=== PATIENT | female | born 1940 | race Caucasian/White ===

== ENCOUNTER 2017-09-17 10:47 | Emergency (ER) | payer OTHER ==
--- NOTE | 2017-09-17 12:24 | ER ---
Nurse's Notes [facility] Name: Ruslan Sanz Age: 76 yrs Sex: Female : 1940 Arrival Date: 09/17/2017 Time: 10:50 Bed 2 Private MD: Armida Horn F Diagnosis: Rash and other nonspecific skin eruption Presentation: 09/17 10:56 Presenting complaint: Patient states: Painful, itchy rash to left inner thigh and left hb inner knee x 5 days. Transition of care: patient was not received from another setting of care. Onset of symptoms was September 13, 2017. Care prior to arrival: None. 10:56 Method Of Arrival: Ambulatory hb 10:56 Acuity: MICHAEL 4 hb Historical: - Allergies: 10:58 PENICILLINS; hb 10:58 Morphine; hb - Immunization history:: Adult Immunizations up to date. - Social history:: Smoking status: Patient/guardian denies using tobacco. Screenin:03 Abuse screen: Denies threats or abuse. Denies injuries from another. Nutritional ph screening: No deficits noted. Tuberculosis screening: No symptoms or risk factors identified. Fall Risk None identified. Assessment: 12:01 General: Appears in no apparent distress. comfortable, well groomed, Behavior is calm, ph cooperative, appropriate for age, Denies fever, feeling ill. Pain: Complains of pain in left inner thigh. Neuro: Level of Consciousness is awake, alert, obeys commands, Oriented to person, place, time, situation. Respiratory: Airway is patent Respiratory effort is even, unlabored, Denies shortness of breath. GI: Patient currently denies diarrhea, nausea, vomiting. Derm: Skin is healthy with good turgor, Skin is pink, warm \\T\\ dry. Rash noted that is itchy, red, on medial aspect of right thigh. Musculoskeletal: Circulation, motion, and sensation intact. Range of motion: intact in all extremities. 12:32 Reassessment: Patient appears in no apparent distress at this time. Waiting "shot time" ph before discharge. Vital Signs: 10:57 BP 148 / 67; Pulse 63; Resp 18; Temp 98.7; Pulse Ox 99% on R/A; Weight 71.67 kg; Height hb 5 ft. 3 in. (160.02 cm); Pain 5/10; 10:57 Body Mass Index 27.99 (71.67 kg, 160.02 cm) ED Course: 10:50 Patient arrived in ED. rg4 10:50 Armida Horn MD is Private Physician. rg4 10:57 Triage completed. hb 10:57 Arm band placed on right wrist. hb 11:44 Conrado Navarro NP is PHCP. pm1 11:44 Joseph Reeves MD is Attending Physician. pm1 12:01 Swetha Chisholm RN is Primary Nurse. ph 12:03 Patient has correct armband on for positive identification. Bed in low position. Call ph light in reach. Side rails up X 1. 12:03 No provider procedures requiring assistance completed. Patient did not have IV access ph during this emergency room visit. 12:24 Armida Horn MD is Referral Physician. pm1 Administered Medications: 12:28 Drug: Tetanus-Diphtheria Toxoid Adult 0.5 ml {Tail Board Man: [employer]. Exp: ph 01/21/2020. Lot #: [id number]. } Route: IM; Site: right gluteus; Outcome: 12:24 Discharge ordered by MD. pm1 13:16 Discharged to home ambulatory, with family. ss 13:16 Condition: good 13:16 Discharge instructions given to patient, family, Instructed on discharge instructions, follow up and referral plans. medication usage, Demonstrated understanding of instructions, follow-up care, medications, Prescriptions given X 1. 13:16 Patient left the ED. ss Signatures: Bailey Acuna RN RN Swetha Chisholm RN RN Conrado Navarro NP BOTTLE HOUSE PUMPER pm1 Maddie Cardona RN RN Opal Emery rg4
--- NOTE | 2017-09-17 12:25 | EDPHYS ---
Physician Documentation [facility] Name: Ruslan Sanz Age: 76 yrs Sex: Female : 1940 Arrival Date: 09/17/2017 Time: 10:50 Bed 2 Private MD: Armida Horn F ED Physician Joseph Reeves HPI: 09/17 12:00 This 76 yrs old Female presents to ER via Ambulatory with complaints of Rash. pm1 12:00 The patient's rash thought to be caused by an unknown cause. The rash is located on the pm1 medial aspect of left thigh. The rash can be described as macular, pustular. Onset: The symptoms/episode began/occurred 2 day(s) ago. Associated signs and symptoms: Pertinent negatives: fever. Severity of symptoms: in the emergency department the symptoms are worse. The patient has not experienced similar symptoms in the past. The patient has not recently seen a physician. Historical: - Allergies: 10:58 PENICILLINS; hb 10:58 Morphine; hb - Immunization history:: Adult Immunizations up to date. - Social history:: Smoking status: Patient/guardian denies using tobacco. ROS: 12:00 Constitutional: Negative for fever, chills, and weight loss, Eyes: Negative for injury, pm1 pain, redness, and discharge, ENT: Negative for injury, pain, and discharge, Neck: Negative for injury, pain, and swelling, Cardiovascular: Negative for chest pain, palpitations, and edema, Respiratory: Negative for shortness of breath, cough, wheezing, and pleuritic chest pain, Abdomen/GI: Negative for abdominal pain, nausea, vomiting, diarrhea, and constipation, Back: Negative for injury and pain, : Negative for injury, bleeding, discharge, and swelling, MS/Extremity: Negative for injury and deformity. 12:00 Neuro: Negative for headache, weakness, numbness, tingling, and seizure. 12:00 Skin: Positive for rash, of the medial aspect of left thigh. Exam: 12:00 Constitutional: This is a well developed, well nourished patient who is awake, alert, pm1 and in no acute distress. Head/Face: Normocephalic, atraumatic. Chest/axilla: Normal chest wall appearance and motion. Nontender with no deformity. No lesions are appreciated. Cardiovascular: Regular rate and rhythm with a normal S1 and S2. No gallops, murmurs, or rubs. Normal PMI, no JVD. No pulse deficits. Respiratory: Lungs have equal breath sounds bilaterally, clear to auscultation and percussion. No rales, rhonchi or wheezes noted. No increased work of breathing, no retractions or nasal flaring. Abdomen/GI: Soft, non-tender, with normal bowel sounds. No distension or tympany. No guarding or rebound. No evidence of tenderness throughout. Back: No spinal tenderness. No costovertebral tenderness. Full range of motion. 12:00 Skin: Appearance: normal except for affected area, abscess, not appreciated, cellulitis, is not appreciated, lesion(s), noted, and can be described as large macules with centralized small pustules. Vital Signs: 10:57 BP 148 / 67; Pulse 63; Resp 18; Temp 98.7; Pulse Ox 99% on R/A; Weight 71.67 kg; Height hb 5 ft. 3 in. (160.02 cm); Pain 5/10; 10:57 Body Mass Index 27.99 (71.67 kg, 160.02 cm) hb MDM: 11:44 Patient medically screened. pm1 12:22 Data reviewed: vital signs. Data interpreted: Pulse oximetry: on room air is 99 %. pm1 Interpretation: normal. Counseling: I had a detailed discussion with the patient and/or guardian regarding: the historical points, exam findings, and any diagnostic results supporting the discharge/admit diagnosis, the need for outpatient follow up, to return to the emergency department if symptoms worsen or persist or if there are any questions or concerns that arise at home. Administered Medications: 12:28 Drug: Tetanus-Diphtheria Toxoid Adult 0.5 ml {Sugar Presser: [employer]. Exp: ph 01/21/2020. Lot #: [id number]. } Route: IM; Site: right gluteus; Disposition: 13:29 Co-signature as Attending Physician, Joseph Reeves MD I agree with the assessment and kdr plan of care. Disposition: 09/17/17 12:24 Discharged to Home. Impression: Rash and other nonspecific skin eruption. - Condition is Stable. - Discharge Instructions: Rash. - Prescriptions for Bactrim DS 800- 160 mg Oral Tablet - take 1 tablet by ORAL route every 12 hours for 10 days; 20 tablet. - Medication Reconciliation Form, Thank You Letter, Antibiotic Education form. - Follow up: Emergency Department; When: As needed; Reason: Worsening of condition. Follow up: Armida Horn MD; When: 2 - 3 days; Reason: Recheck today's complaints, Continuance of care, Re-evaluation by your physician. - Problem is new. - Symptoms have improved. Signatures: Joseph Reeves MD MD [facility] Bailey Acuna RN RN ss Swetha Chisholm RN RN Conrado Navarro, [employer]PARTMENT OPERATIONS MANAGER pm1 Maddie Cardona RN RN hb
[2017-09-17] MEDS ORDERED: TETANUS & DIPHTHERIA TOX,ADULT 0.5 ML VIAL ONE (12:45)
[2017-09-17 13:25] VITALS: BP 148/67; TEMP 98.7; O2SAT 99
== END 2017-09-17 13:16 | disposition home or self-care (01) ==
LOC: ER 10:47
DX: R21 Rash and other nonspecific skin eruption (principal); Z23 Encounter for immunization; Z88.0 Allergy status to penicillin; Z88.5 Allergy status to narcotic agent
CPT/HCPCS: 90714; 99283

== ENCOUNTER 2020-03-10 16:09 | Emergency (ER) | payer OTHER ==
--- OUTSIDE RECORDS SUMMARY | 2020-03-10 16:11 | XMS REPORT | Continuity of Care Document ---
:1940 Author Organization [facility] t Address [address] [place] [address] Care Team Providers Name Role Phone Unavailable Unavailable Unavailable Problems This patient has no known problems. Allergies, Adverse Reactions, Alerts This patient has no known allergies or adverse reactions. Medications This patient has no known medications. Procedures This patient has no known procedures. Results This patient has no known results.
[2020-03-10 17:24] LABS: Absolute Lymphocytes (CBC) 0.7 K/uL (0.7-4.9); Basophils % 0.4 % (0-1.3); MPV 8.6 fL (7.6-11.3); RBC Red Blood Cell Count 3.99 M/uL (3.86-4.86)
--- NOTE | 2020-03-10 17:33 | RAD REPORT ---
EXAM DESCRIPTION: CT - Stone Protocol - 03/10/2020 5:25 pm CLINICAL HISTORY: right lower abdomen and right lower back pain COMPARISON: No comparisons TECHNIQUE: Axial 3 mm thick images were obtained without oral or IV contrast. The [id number] span s the entirety of the system including uppermost abdomen and lung bases. All CT scans are performed using dose optimization technique as appropriate and may include automated exposure control or mA/KV adjustment according to patient size. FINDINGS: Mild right-sided hydronephrosis is present secondary to a 3 mm UVJ calculus. Right kidney is edematous. Stranding is seen in the perinephric fat. Additional mineralization is present in the l ower pole calyx on the right. No left-sided hydronephrosis or obstructing calculus. No suspicious maurice al masses. Isodense masses and pyelonephritis are not excluded on a stone protocol CT scan. No signif icant adrenal finding. Air is present in the urinary bladder presumed to be from catheterization proc edure. Imaged portions of the liver, spleen and pancreas show no suspicious findings on non-contrast imaging . Cholecystectomy clips are present. No biliary tree dilatation. No suspicious bowel findings. No hernia, mass or bulky lymphadenopathy noted. No free air, free fluid or inflammatory stranding. No significant bony abnormality. IMPRESSION: Mild right-sided hydronephrosis secondary to an obstructing 3 mm UVJ calculus. Air in the urinary bladder is presumed to be from a catheterization procedure. This needs clinical co rrelation. Isodense masses and pyelonephritis are not excluded on stone protocol technique.
[2020-03-10 17:42] LABS: ALT/SGPT 13 U/L (12-78); AST/SGOT 20 U/L (15-37); Albumin 3.5 g/dL (3.4-5.0); Alkaline Phosphatase 152 U/L (45-117); BUN Blood Urea Nitrogen 17 mg/dL (7-18); Bicarbonate 26 mmol/L (21-32); Bilirubin Direct < 0.1 mg/dL (0-0.2); Bilirubin Total 0.3 mg/dL (0.2-1.0); Glucose Level 117 mg/dL (74-106); Lipase 82 U/L (73-393); Potassium 4.1 mmol/L (3.5-5.1); Protein, Total 7.7 g/dL (6.4-8.2); Sodium Level 137 mmol/L (136-145)
[2020-03-10] MEDS ORDERED: KETOROLAC 30 MG/ML INJ ONE (17:59)
[2020-03-10] MEDS ORDERED: FENTANYL CITR 100 MCG/2 ML ONE (17:59)
[2020-03-10] MEDS ORDERED: ONDANSETRON 4 MG/2 ML VIAL ONE (17:59)
[2020-03-10 18:09] LABS: Urine Bacteria LOADED /HPF (<20); Urine RBC NONE SEEN /HPF (NONE SEEN)
[2020-03-10 18:10] LABS: Urine Culture Reflex Order REFLEXED
[2020-03-10] MEDS ORDERED: TAMSULOSIN 0.4 MG SR CAP ONE (18:22)
[2020-03-10] MEDS ORDERED: NA CHLORIDE 0.9% 250 ML ONE (18:22)
[2020-03-10] MEDS ORDERED: CEFTRIAXONE/SWI 1gm 1 GM/10 ML SYR ONE (18:22)
--- NOTE | 2020-03-10 18:36 | EDPHYS ---
Physician Documentation [facility] Name: Ruslan Sanz Age: 79 yrs Sex: Female : 1940 Arrival Date: 03/10/2020 Time: 16:20 Bed 16 Private MD: ED Physician Manan Coronado HPI: 03/10 17:10 This 79 yrs old Female presents to ER via Ambulatory with complaints of Back cp Pain, Abdominal Pain. 17:10 The patient complains of pain in the right lower quadrant of abdomen and right low cp back. The pain radiates to the right mid back. Onset: The symptoms/episode began/occurred suddenly, 5 hour(s) ago. Associated signs and symptoms: Pertinent positives: urinary frequency, nausea, vomiting, Pertinent negatives: diarrhea, fever, pain radiating to the lower extremities. Severity of pain: in the emergency department the pain is unchanged despite home interventions. Historical: - Allergies: 16:40 PENICILLINS; aj1 16:40 Morphine; aj1 - Home Meds: 16:40 gabapentin oral oral [Active]; Carbamazepine Oral [Active]; duloxetine 20 mg oral cpDR aj1 [Active]; Meclizine Oral [Active]; Topamax Oral [Active]; lisinopril-hydrochlorothiazide oral oral [Active]; - PMHx: 16:40 Hypertension; Migraines; trigeminal neuralgia; Sleep Apnea; aj1 - Immunization history:: Flu vaccine is up to date. - Social history:: Smoking status: Patient/guardian denies using tobacco. ROS: 17:15 Constitutional: Negative for body aches, chills, fever, poor PO intake. cp 17:15 Eyes: Negative for injury, pain, redness, and discharge. cp 17:15 ENT: Negative for ear pain, sore throat, difficulty swallowing, difficulty handling secretions. 17:15 Cardiovascular: Negative for chest pain. 17:15 Respiratory: Negative for cough, shortness of breath, wheezing. 17:15 Abdomen/GI: Positive for abdominal pain, nausea, vomiting, of the right lower quadrant, Negative for diarrhea, constipation, black/tarry stool, rectal bleeding. 17:15 Back: Positive for flank pain, on the right, radiated pain, Negative for injury or acute deformity. 17:15 : Positive for urinary frequency, Negative for burning with urination. 17:15 Skin: Negative for rash. 17:15 Neuro: Negative for altered mental status, headache, weakness. 17:15 All other systems are negative. Exam: 17:20 Constitutional: The patient appears in no acute distress, alert, awake, cp non-diaphoretic, non-toxic, well developed, well nourished. 17:20 Head/Face: Normocephalic, atraumatic. cp 17:20 Eyes: Periorbital structures: appear normal, Conjunctiva: normal, no exudate, no injection, Sclera: no appreciated abnormality, Lids and lashes: appear normal, bilaterally. 17:20 ENT: External ear(s): are unremarkable, Nose: is normal, Mouth: Lips: moist, Oral mucosa: moist, Posterior pharynx: Airway: no evidence of obstruction, patent. 17:20 Chest/axilla: Inspection: normal, Palpation: is normal, no crepitus, no tenderness. 17:20 Cardiovascular: Rate: normal, Rhythm: regular, Edema: is not appreciated, JVD: is not appreciated. 17:20 Respiratory: the patient does not display signs of respiratory distress, Respirations: normal, no use of accessory muscles, no retractions, labored breathing, is not present, Breath sounds: are clear throughout, no decreased breath sounds, no stridor, no wheezing. 17:20 Abdomen/GI: Inspection: abdomen appears normal, Bowel sounds: active, all quadrants, Palpation: soft, in all quadrants, moderate abdominal tenderness, in the posterior aspect of right lateral abdomen, anterior aspect of right lateral abdomen and right lower quadrant, rebound tenderness, is not appreciated, voluntary guarding, is not appreciated, involuntary guarding, is not appreciated. 17:20 Back: pain, that is moderate, of the right mid back and right low back, ROM is painful, with all movement. 17:20 Skin: no rash present. 17:20 Neuro: Orientation: to person, place \T\ time. Mentation: is normal, Motor: moves all fours, strength is normal. Vital Signs: 16:40 BP 194 / 79; Pulse 63; Resp 18; Temp 98.5; Pulse Ox 98% on R/A; Weight 73.48 kg (R); aj1 Height 5 ft. 3 in. (160.02 cm) (R); Pain 10/10; 17:10 BP 165 / 67; Pulse 64; Resp 15 S; Pulse Ox 99% on R/A; ca1 17:55 BP 155 / 74; Pulse 66; Resp 18 S; Pulse Ox 95% on R/A; Pain 4/10; ca1 16:40 Body Mass Index 28.70 (73.48 kg, 160.02 cm) aj1 MDM: 17:01 Patient medically screened. cp 17:30 Differential diagnosis: nephrolithiasis, pyelonephritis, UTI, diverticulitis, cp pancreatitis, appendicitis, colitis, bowel obstruction. 18:35 Data reviewed: vital signs, nurses notes, lab test result(s), radiologic studies, CT cp scan, I have discussed the patient's presentation/case with the attending Emergency Department Physician; and as a result, I will discharge patient. 18:35 Counseling: I had a detailed discussion with the patient and/or guardian regarding: the cp historical points, exam findings, and any diagnostic results supporting the discharge/admit diagnosis, lab results, radiology results, the need for outpatient follow up, a urologist, to return to the emergency department if symptoms worsen or persist or if there are any questions or concerns that arise at home. Response to treatment: the patient's symptoms have markedly improved after treatment. ED course: VSS. Patient appears non-toxic. Nausea and pain markedly improved, vomiting resolved. Will discharge to home for continued monitoring. 03/10 17:02 Order name: Basic Metabolic Panel; Complete Time: 18:17 03/10 18:18 Interpretation: Normal except: GLUC 117; GFR 54. 03/10 17:02 Order name: CBC with Diff; Complete Time: 17:39 03/10 17:39 Interpretation: Normal except: FAROOQ% 78.5; LYM% 13.0. 03/10 17:02 Order name: Hepatic Function; Complete Time: 18:17 03/10 17:02 Order name: Lipase; Complete Time: 18:17 03/10 17:02 Order name: Urine Microscopic Only; Complete Time: 18:17 03/10 18:17 Interpretation: Reviewed. 03/10 18:08 Order name: Urine Dipstick--Ancillary (enter results) eb 03/10 17:05 Order name: CT Stone Protocol; Complete Time: 17:39 03/10 18:10 Order name: Urine Culture EDID 03/10 17:02 Order name: IV Saline Lock; Complete Time: 17:21 cp 03/10 17:02 Order name: Labs collected and sent; Complete Time: 17:21 cp 03/10 17:02 Order name: Bladder Scanner; Complete Time: 17:09 cp 03/10 17:02 Order name: Urine Dipstick-Ancillary (obtain specimen); Complete Time: 17:54 cp 03/10 17:42 Order name: PO challenge; Complete Time: 18:14 cp Administered Medications: 17:25 Drug: Zofran (Ondansetron) 4 mg Route: IVP; Site: right wrist; ca1 18:53 Follow up: Response: No adverse reaction; Nausea is decreased ca1 17:27 Drug: TORadol - Ketorolac 15 mg Route: IVP; Site: right wrist; ca1 18:53 Follow up: Response: No adverse reaction; Pain is decreased; RASS: Alert and Calm (0) ca1 17:30 Drug: fentaNYL (PF) 25 mcg {Note: rass 0.} Route: IVP; Site: right wrist; ca1 18:53 Follow up: Response: No adverse reaction; Pain is decreased; RASS: Alert and Calm (0) ca1 18:15 Drug: Flomax 0.4 mg Route: PO; ca1 18:54 Follow up: Response: No adverse reaction ca1 18:15 Drug: Rocephin 1 grams Route: IV; Rate: calculated rate; Site: right wrist; ca1 18:54 Follow up: Response: No adverse reaction; IV Status: Completed infusion ca1 18:15 Drug: NS 0.9% 250 ml Route: IV; Rate: bolus; Site: right wrist; ca1 18:54 Follow up: Response: No adverse reaction; IV Status: Completed infusion; IV Intake: ca1 250ml 18:40 Drug: Cipro 500 mg Route: PO; ca1 18:53 Follow up: Response: No adverse reaction ca1 Disposition: 03/11 16:49 Co-signature as Attending Physician, Manan Coronado MD I agree with the assessment and anabelle plan of care. Disposition: 03/10/20 18:35 Discharged to Home. Impression: Calculus of ureter - right. - Condition is Stable. - Discharge Instructions: Kidney Stones, Renal Colic. - Prescriptions for Cipro 250 mg Oral Tablet - take 2 tablets by ORAL route every 12 hours for 10 days; 20 tablet. Zofran 4 mg Oral Tablet - take 1 tablet by ORAL route every 12 hours As needed; 20 tablet. Flomax 0.4 mg Oral Capsule, Sust. Release 24 hr - take 1 capsule by ORAL route once daily 1/2 hour following the same meal each day; 5 capsule. Tramadol 50 mg Oral Tablet - take 1 tablet by ORAL route every 8 hours as needed; 12 tablet. Bactrim DS 800- 160 mg Oral Tablet - take 1 tablet by ORAL route every 12 hours for 10 days; 20 tablet. - Medication Reconciliation Form, Thank You Letter, Antibiotic Education, Prescription Opioid Use form. - Follow up: Ap Farias MD; When: 1 - 2 days; Reason: Recheck today's complaints. - Problem is new. - Symptoms have improved. Signatures: Dispatcher [employer] EDChelsea Michele RN RN aj1 Manan Coronado MD MD cha Page, Corey, PA PA cp Acgerardo, MARK Loera RN ca1 Corrections: (The following items were deleted from the chart) 03/10 19:08 18:35 03/10/2020 18:35 Discharged to Home. Impression: Calculus of ureter - right. ca1 Condition is Stable. Forms are Medication Reconciliation Form, Thank You Letter, Antibiotic Education, Prescription Opioid Use. Follow up: Ap Farias; When: 1 - 2 days; Reason: Recheck today's complaints. Problem is new. Symptoms have improved. cp
--- NOTE | 2020-03-10 18:36 | ER ---
Nurse's Notes [facility] Name: Ruslan Sanz Age: 79 yrs Sex: Female : 1940 Arrival Date: 03/10/2020 Time: 16:20 Bed 16 Private MD: Diagnosis: Calculus of ureter-right Presentation: 03/10 16:30 Chief complaint: Patient states: Right lower back pain, right lower abdominal pain for aj1 the past 5 hours. Patient also reports nausea, and diarrhea, denies vomiting. States that she has not been urinating as much as usual today, denies dysuria. Coronavirus screen: Client denies travel out of the [place] in the last 14 days. At this time, the client does not indicate any symptoms associated with coronavirus-19. Ebola Screen: Patient denies travel to an Ebola-affected area in the 21 days before illness onset. Initial Sepsis Screen: Does the patient meet any 2 criteria? No. Patient's initial sepsis screen is negative. Does the patient have a suspected source of infection? Yes: Acute abdominal pain. Risk Assessment: Do you want to hurt yourself or someone else? Patient reports no desire to harm self or others. Onset of symptoms was March 10, 2020 at 11:00. 16:30 Method Of Arrival: Ambulatory aj1 16:30 Acuity: MICHAEL 3 aj1 Triage Assessment: 16:40 General: Appears in no apparent distress. uncomfortable, Behavior is calm, cooperative, aj1 appropriate for age. Pain: Complains of pain in back and abdomen. Neuro: Level of Consciousness is awake, alert, obeys commands. Cardiovascular: Patient's skin is warm and dry. Respiratory: Airway is patent Respiratory effort is even, unlabored, Respiratory pattern is regular, symmetrical. Musculoskeletal: Range of motion: intact in all extremities. Historical: - Allergies: 16:40 PENICILLINS; aj1 16:40 Morphine; aj1 - Home Meds: 16:40 gabapentin oral oral [Active]; Carbamazepine Oral [Active]; duloxetine 20 mg oral cpDR aj1 [Active]; Meclizine Oral [Active]; Topamax Oral [Active]; lisinopril-hydrochlorothiazide oral oral [Active]; - PMHx: 16:40 Hypertension; Migraines; trigeminal neuralgia; Sleep Apnea; aj1 - Immunization history:: Flu vaccine is up to date. - Social history:: Smoking status: Patient/guardian denies using tobacco. Screenin:51 Abuse screen: Denies threats or abuse. Denies injuries from another. Nutritional ca1 screening: No deficits noted. Tuberculosis screening: No symptoms or risk factors identified. Fall Risk IV access (20 points). Assessment: 16:51 General: Appears in no apparent distress. uncomfortable, Behavior is calm, cooperative, ca1 appropriate for age. Pain: Complains of pain in right low back and abdomen Pain radiates to suprapubic area, right lower quadrant and left lower quadrant Pain currently is 10 out of 10 on a pain scale. Quality of pain is described as burning, sharp, Pain began at 1100 today. Neuro: Level of Consciousness is awake, alert, obeys commands, Oriented to person, place, time, situation. Cardiovascular: Heart tones S1 S2 present Capillary refill < 3 seconds Patient's skin is warm and dry. Respiratory: Airway is patent Respiratory effort is even, unlabored, Respiratory pattern is regular, symmetrical, Breath sounds are clear bilaterally. GI: Abdomen is round non-distended, Bowel sounds present X 4 quads. Abd is soft X 4 quads Abdomen is tender to palpation in right upper quadrant, right lower quadrant and left lower quadrant Reports nausea. : Reports urgency. EENT: No signs and/or symptoms were reported regarding the EENT system. Derm: Skin is intact, is healthy with good turgor, Skin is pink, warm \T\ dry. Musculoskeletal: Circulation, motion, and sensation intact. Capillary refill < 3 seconds. 17:55 Reassessment: Patient appears in no apparent distress at this time. Patient and/or ca1 family updated on plan of care and expected duration. Pain level reassessed. Patient is alert, oriented x 3, equal unlabored respirations, skin warm/dry/pink. 18:51 Reassessment: Patient appears in no apparent distress at this time. Patient and/or ca1 family updated on plan of care and expected duration. Pain level reassessed. Patient is alert, oriented x 3, equal unlabored respirations, skin warm/dry/pink. Patient states feeling better. Vital Signs: 16:40 BP 194 / 79; Pulse 63; Resp 18; Temp 98.5; Pulse Ox 98% on R/A; Weight 73.48 kg (R); aj1 Height 5 ft. 3 in. (160.02 cm) (R); Pain 10/10; 17:10 BP 165 / 67; Pulse 64; Resp 15 S; Pulse Ox 99% on R/A; ca1 17:55 BP 155 / 74; Pulse 66; Resp 18 S; Pulse Ox 95% on R/A; Pain 4/10; ca1 16:40 Body Mass Index 28.70 (73.48 kg, 160.02 cm) aj1 ED Course: 16:20 Patient arrived in ED. mr 16:33 Triage completed. aj1 16:40 Arm band placed on Patient placed in an exam room. aj1 16:43 Luz Maria Tejeda, RN is Primary Nurse. ca1 16:51 Patient has correct armband on for positive identification. Placed in gown. Bed in low ca1 position. Call light in reach. Side rails up X2. Pulse ox on. NIBP on. Warm blanket given. 16:58 Manan Aden PA is PHCP. cp 16:58 Manan Coronado MD is Attending Physician. cp 17:09 Bladder scan completed. 145ML. ca1 17:17 No provider procedures requiring assistance completed. Initial lab(s) drawn, by hi, ca1 sent to lab. Inserted saline lock: 20 gauge in right wrist, using aseptic technique. Blood collected. 17:26 CT Stone Protocol In Process Unspecified. EDMS 18:14 Diet: Patient given juice. Patient given water. Tolerated well. ca1 18:34 Ap Farias MD is Referral Physician. cp 19:06 IV discontinued, intact, bleeding controlled, No redness/swelling at site. Pressure ca1 dressing applied. Administered Medications: 17:25 Drug: Zofran (Ondansetron) 4 mg Route: IVP; Site: right wrist; ca1 18:53 Follow up: Response: No adverse reaction; Nausea is decreased ca1 17:27 Drug: TORadol - Ketorolac 15 mg Route: IVP; Site: right wrist; ca1 18:53 Follow up: Response: No adverse reaction; Pain is decreased; RASS: Alert and Calm (0) ca1 17:30 Drug: fentaNYL (PF) 25 mcg {Note: rass 0.} Route: IVP; Site: right wrist; ca1 18:53 Follow up: Response: No adverse reaction; Pain is decreased; RASS: Alert and Calm (0) ca1 18:15 Drug: Flomax 0.4 mg Route: PO; ca1 18:54 Follow up: Response: No adverse reaction ca1 18:15 Drug: Rocephin 1 grams Route: IV; Rate: calculated rate; Site: right wrist; ca1 18:54 Follow up: Response: No adverse reaction; IV Status: Completed infusion ca1 18:15 Drug: NS 0.9% 250 ml Route: IV; Rate: bolus; Site: right wrist; ca1 18:54 Follow up: Response: No adverse reaction; IV Status: Completed infusion; IV Intake: ca1 250ml 18:40 Drug: Cipro 500 mg Route: PO; ca1 18:53 Follow up: Response: No adverse reaction ca1 Intake: 18:54 IV: 250ml; Total: 250ml. ca1 Outcome: 18:35 Discharge ordered by MD. cp 19:07 Discharged to home ambulatory. ca1 19:07 Condition: stable 19:07 Discharge instructions given to patient, Instructed on discharge instructions, follow up and referral plans. no drinking with medication, no driving heavy equipment, medication usage, Demonstrated understanding of instructions, follow-up care, medications, Prescriptions given X x5 19:08 Patient left the ED. ca1 Signatures: Dispatcher [employer] EDMS Chelsea Lubin RN RN aj1 Belkys Munoz mr Manan Aden PA PA cp Acob, Cheryl, RN RN ca1
[2020-03-10] MEDS ORDERED: CIPROFLOXACIN HCL 500 MG TAB ONE (18:47)
[2020-03-10 19:07] LABS: Urine Blood 1+ (NEG); Urine Glucose NEGATIVE (NEG); Urine Protein 1+ (NEG); Urine pH >8.5 (5.0-7.0)
[2020-03-10 19:15] VITALS: TEMP 98.5
[2020-03-10 19:17] VITALS: BP 155/74; O2SAT 95
== END 2020-03-10 19:08 | disposition home or self-care (01) ==
LOC: ER 16:09
DX: N20.1 Calculus of ureter (principal); I10 Essential (primary) hypertension; Z88.0 Allergy status to penicillin; Z88.5 Allergy status to narcotic agent
CPT/HCPCS: 96365; 96368; 87088; 85025; 87086; 80048; 36415; 80076; 83690; 76377; 74176; 96375; 99284; J3010; J0696; J7050; J2405; 81003; 81015; 87077; 87186

== ENCOUNTER 2021-01-27 11:40 | Emergency (ER) | payer OTHER ==
--- OUTSIDE RECORDS SUMMARY | 2021-01-27 11:43 | XMS REPORT | Continuity of Care Document ---
:1940 Author Organization [facility] t Address [address] [place] [address] Care Team Providers Name Role Phone Unavailable Unavailable Unavailable Problems This patient has no known problems. Allergies, Adverse Reactions, Alerts This patient has no known allergies or adverse reactions. Medications This patient has no known medications. Procedures This patient has no known procedures. Results This patient has no known results.
--- NOTE | 2021-01-27 14:34 | RAD REPORT ---
EXAM DESCRIPTION: RAD - Chest Single View - 01/27/2021 2:13 pm CLINICAL HISTORY: COUGH COMPARISON: Chest Pa And Lat (2 Views) dated 12/17/2015; CHEST PA AND LAT 2 VIEW dated 07/18/2014; BROOKS ST PA AND LAT 2 VIEW dated 07/20/2012; CHEST PA AND LAT 2 VIEW dated 09/06/2009 FINDINGS: No evidence of edema or pneumonia. The heart size is within normal limits.No acute osseous abnormality. No significant pleural effusions or pneumothorax. IMPRESSION: No acute cardiopulmonary disease.
--- NOTE | 2021-01-27 15:18 | ER ---
Nurse's Notes [facility] Name: Ruslan Sanz Age: 80 yrs Sex: Female : 1940 Arrival Date: 01/27/2021 Time: 12:30 Bed Waiting Private MD: Diagnosis: SARS-associated coronavirus as the cause of diseases classified elsewhere Presentation: 01/27 13:12 Chief complaint: Patient states: Cough, fever, chills, anxiety, unable to sleep since kg Wednesday. Coronavirus screen: Client denies travel out of the [place] in the last 14 days. At this time, unable to obtain information related to travel outside the [place] At this time, the client does not indicate any symptoms associated with coronavirus-19. Ebola Screen: Patient negative for fever greater than or equal to 101.5 degrees Fahrenheit, and additional compatible Ebola Virus Disease symptoms Patient denies exposure to infectious person. Patient denies travel to an Ebola-affected area in the 21 days before illness onset. Initial Sepsis Screen: Does the patient meet any 2 criteria? No. Patient's initial sepsis screen is negative. Does the patient have a suspected source of infection? No. Patient's initial sepsis screen is negative. Risk Assessment: Do you want to hurt yourself or someone else? Patient reports no desire to harm self or others. Onset of symptoms was January 24, 2021. 13:12 Method Of Arrival: EMS: [facility] kg 13:12 Acuity: MICHAEL 4 kg Triage Assessment: 13:14 General: Appears in no apparent distress. Behavior is calm, cooperative, appropriate kg for age, quiet. Pain: Complains of pain in Generalized. Historical: - Allergies: 13:14 Morphine; kg 13:14 PENICILLINS; kg - Home Meds: 13:14 Carbamazepine Oral [Active]; Topamax Oral [Active]; Meclizine Oral [Active]; kg lisinopril-hydrochlorothiazide Oral [Active]; gabapentin Oral [Active]; duloxetine 20 mg Oral cpDR [Active]; - PMHx: 13:14 Hypertension; Migraines; Sleep Apnea; trigeminal neuralgia; Depression; Anxiety; Breast kg CA; - PSHx: 13:14 Total abdominal hysterectomy; Left Mastectomy; Cholecystectomy; kg - Immunization history:: Adult Immunizations up to date, Client reports having NOT received the Covid vaccine. - Social history:: Smoking status: Patient denies any tobacco usage or history of. Screenin:30 Abuse screen: Denies threats or abuse. Denies injuries from another. Nutritional kg screening: No deficits noted. Tuberculosis screening: No symptoms or risk factors identified. Fall Risk None identified. Vital Signs: 13:12 BP 128 / 69; Pulse 81; Resp 18; Temp 100.1; Pulse Ox 97% on R/A; Weight 74.84 kg (R); kg Height 5 ft. 3 in. (160.02 cm); Pain 8/10; 14:46 Temp 98.3(O); kg 13:12 Body Mass Index 29.23 (74.84 kg, 160.02 cm) kg ED Course: 12:30 Patient arrived in ED. kg 13:14 Triage completed. kg 13:14 Arm band placed on right wrist. kg 13:18 Maintain EMS IV. Dressing intact. Good blood return noted. Site clean \T\ dry. Gauge \T\ kg site: 20 R hand. 14:13 XRAY Chest (1 view) In Process Unspecified. EDMS 14:43 Pavel Arteaga PA is PHCP. jr8 14:43 Thom Allen MD is Attending Physician. jr8 16:30 Patient has correct armband on for positive identification. kg 16:30 No provider procedures requiring assistance completed. IV discontinued, intact, kg bleeding controlled, No redness/swelling at site. Pressure dressing applied. Administered Medications: No medications were administered Outcome: 15:18 Discharge ordered by . jr8 16:30 Discharged to home via wheelchair. kg 16:30 Condition: good 16:30 Discharge instructions given to patient, Instructed on discharge instructions, follow up and referral plans. Demonstrated understanding of instructions, follow-up care. 16:30 Patient left the ED. kg Signatures: Dispatcher [employer] EDMS Pavel Arteaga PA PA jr8 Nasreen Rai RN RN kg
--- NOTE | 2021-01-27 15:19 | EDPHYS ---
Physician Documentation [facility] Name: Ruslan Sanz Age: 80 yrs Sex: Female : 1940 Arrival Date: 01/27/2021 Time: 12:30 Bed Waiting Private MD: ED Physician Thom Allen HPI: 01/27 14:44 This 80 yrs old Female presents to ER via EMS with complaints of Cough, Fever.jr8 14:44 The patient or guardian reports cough, that is intermittent, described as mild. Onset: jr8 The symptoms/episode began/occurred acutely, 3 day(s) ago. Severity of symptoms: At their worst the symptoms were mild, in the emergency department the symptoms are unchanged. Modifying factors: The symptoms are alleviated by nothing, the symptoms are aggravated by nothing. Associated signs and symptoms: Pertinent positives: fever. The patient has not experienced similar symptoms in the past. The patient has not recently seen a physician. Historical: - Allergies: 13:14 Morphine; kg 13:14 PENICILLINS; kg - Home Meds: 13:14 Carbamazepine Oral [Active]; Topamax Oral [Active]; Meclizine Oral [Active]; kg lisinopril-hydrochlorothiazide Oral [Active]; gabapentin Oral [Active]; duloxetine 20 mg Oral cpDR [Active]; - PMHx: 13:14 Hypertension; Migraines; Sleep Apnea; trigeminal neuralgia; Depression; Anxiety; Breast kg CA; - PSHx: 13:14 Total abdominal hysterectomy; Left Mastectomy; Cholecystectomy; kg - Immunization history:: Adult Immunizations up to date, Client reports having NOT received the Covid vaccine. - Social history:: Smoking status: Patient denies any tobacco usage or history of. ROS: 14:44 Cardiovascular: Negative for chest pain, palpitations, and edema, Abdomen/GI: Negative jr8 for abdominal pain, nausea, vomiting, diarrhea, and constipation. 14:44 Constitutional: Positive for fatigue, fever. 14:44 Respiratory: Positive for cough, with no reported sputum, Negative for shortness of breath, sputum production, wheezing. 14:44 All other systems are negative. Exam: 14:44 Constitutional: This is a well developed, well nourished patient who is awake, alert, jr8 and in no acute distress. ENT: Nares patent. No nasal discharge, no septal abnormalities noted. Tympanic membranes are normal and external auditory canals are clear. Oropharynx with no redness, swelling, or masses, exudates, or evidence of obstruction, uvula midline. Mucous membranes moist. Neck: Trachea midline, no thyromegaly or masses palpated, and no cervical lymphadenopathy. Supple, full range of motion without nuchal rigidity, or vertebral point tenderness. No Meningismus. Cardiovascular: Regular rate and rhythm with a normal S1 and S2. No gallops, murmurs, or rubs. Normal PMI, no JVD. No pulse deficits. Respiratory: Lungs have equal breath sounds bilaterally, clear to auscultation and percussion. No rales, rhonchi or wheezes noted. No increased work of breathing, no retractions or nasal flaring. Abdomen/GI: Soft, non-tender, with normal bowel sounds. No distension or tympany. No guarding or rebound. No evidence of tenderness throughout. Back: No spinal tenderness. No costovertebral tenderness. Full range of motion. Skin: Warm, dry with normal turgor. Normal color with no rashes, no lesions, and no evidence of cellulitis. MS/ Extremity: Pulses equal, no cyanosis. Neurovascular intact. Full, normal range of motion. Neuro: Awake and alert, GCS 15, oriented to person, place, time, and situation. Cranial nerves II-XII grossly intact. Motor strength 5/5 in all extremities. Sensory grossly intact. Vital Signs: 13:12 BP 128 / 69; Pulse 81; Resp 18; Temp 100.1; Pulse Ox 97% on R/A; Weight 74.84 kg (R); kg Height 5 ft. 3 in. (160.02 cm); Pain 8/10; 14:46 Temp 98.3(O); kg 13:12 Body Mass Index 29.23 (74.84 kg, 160.02 cm) kg MDM: 14:45 Patient medically screened. jr8 15:16 Data reviewed: vital signs, nurses notes, lab test result(s), radiologic studies, plain jr8 films. Data interpreted: Pulse oximetry: on room air is 97 %. Interpretation: normal. Counseling: I had a detailed discussion with the patient and/or guardian regarding: the historical points, exam findings, and any diagnostic results supporting the discharge/admit diagnosis, lab results, radiology results, the need for outpatient follow up, a family practitioner, to return to the emergency department if symptoms worsen or persist or if there are any questions or concerns that arise at home. ED course: Patient doing well at this time. Hemodynamically stable and without any compromise in oxygen saturations or increase in work of breathing. Chest x-ray negative. Will send patient home on vitamin regimen at this time otherwise no indication for steroids or antibiotics. Patient needs to follow-up with primary care in the next couple days which was discussed with her. Patient also knows to come back if she has any problem with her breathing.. 01/27 13:08 Order name: Flu kg 01/27 13:08 Order name: COVID-19 : Document "Date of Symptom Onset" if Symptomatic. kg 01/27 13:08 Order name: Influenza Screen (A ; Complete Time: 15:15 EDMS 01/27 13:31 Order name: XRAY Chest (1 view); Complete Time: 14:44 rn 01/27 15:08 Order name: SARS-COV-2 RT PCR; Complete Time: 15:15 EDMS Administered Medications: No medications were administered Disposition: 17:24 Co-signature as Attending Physician, Thom Allen MD I agree with the assessment and rn plan of care. Attestation: The patient's history, exam findings, diagnostics, and a summary of any interventions or procedures was reviewed in detail with Pavel CALDERON. Disposition Summary: 01/27/21 15:18 Discharge Ordered Location: Home jr8 Problem: new jr8 Symptoms: have improved jr8 Condition: Stable jr8 Diagnosis - SARS-associated coronavirus as the cause of diseases classified elsewhere jr8 Followup: jr8 - With: Private Physician - When: 2 - 3 days - Reason: Recheck today's complaints, Continuance of care, Re-evaluation by your physician Discharge Instructions: - Discharge Summary Sheet jr8 - COVID-19 jr8 Forms: - Medication Reconciliation Form jr8 - Thank You Letter jr8 - Antibiotic Education jr8 - Prescription Opioid Use jr8 Signatures: Dispatcher [employer] EDMS Thom Allen MD MD rn Roszak, Josh, PA PA jr8 Nasreen Rai, RN RN kg Corrections: (The following items were deleted from the chart) 14:02 13:08 CORONAVIRUS ordered. EDMS EDMS
[2021-01-27 16:41] VITALS: BP 128/69; O2SAT 97
[2021-01-27 16:43] VITALS: TEMP 98.3
== END 2021-01-27 16:30 | disposition home or self-care (01) ==
LOC: ER 11:40
DX: U07.1 COVID-19 (principal); I10 Essential (primary) hypertension; F41.8 Other specified anxiety disorders; Z88.0 Allergy status to penicillin; Z85.3 Personal history of malignant neoplasm of breast; Z88.5 Allergy status to narcotic agent; Z90.12 Acquired absence of left breast and nipple
CPT/HCPCS: 87804 ×2; 71045; 99283; U0003

== ENCOUNTER 2021-09-14 15:23 | Emergency (ER) | payer OTHER ==
--- OUTSIDE RECORDS SUMMARY | 2021-09-14 15:25 | XMS REPORT | Continuity of Care Document ---
:1940 Demographics [address] [place] [address] Email Address Preferred Language Namibian Marital Status Unknown Mormon Affiliation Unknown Race Unknown Additional Race(s) Unavailable Ethnic Group Unknown Author Organization [facility] t Address [address] [place] [address] Care Team Providers Name Role Phone Juan David Grimaldo Attending Clinician Unavailable Lester Attending Clinician Unavailable Clover Attending Clinician Unavailable Problems This patient has no known problems. Allergies, Adverse Reactions, Alerts This patient has no known allergies or adverse reactions. Medications This patient has no known medications. Procedures This patient has no known procedures. Encounters Start End Encounter Admission Attending Care Care Encounter Source Date/Time Date/Time Type Type Clinicians Facility Department ID 2021-08-22 Outpatient Grimaldo, Na [facility]LMLC [facility] [id number] [facility] 10:35:01 [id number] [facility] 2021-08-19 Outpatient Grimaldo, Na [facility]LMLC [facility] [id number] [facility] 11:34:01 [id number] [facility] 2021-07-16 Outpatient Grimaldo, Na [facility]C [facility] [id number] [facility] 14:34:37 [facility] 2021-07-16 Outpatient Grimaldo, Na [facility]LMLC [facility] [id number] [facility] 14:10:53 [id number] [facility] 2021-07-16 Outpatient Grimaldo, Na [facility] [id number] [facility] 13:38:07 [id number] [facility] 2021-07-16 Outpatient Grimaldo, Na [facility] [id number] [facility] 13:30:48 [id number] [facility] 2021-07-16 Outpatient Grimaldo, Na [facility] [id number] [facility] 12:58:58 [id number] [facility] 2021-07-16 Outpatient Re, Na [facility] [id number] [facility] 12:51:19 [id number] [facility] 2021-07-16 Outpatient Re, Na [facility] [id number] [facility] 12:50:43 [id number] [facility] 2021-07-16 Outpatient Re, Na [facility] [id number] [facility] 12:39:58 [id number] [facility] 2021-07-16 Outpatient Re, Na [facility] [id number] [facility] 12:32:34 [id number] [facility] 2021-07-16 Outpatient eR, Na [facility]C [facility] [id number] [facility] 12:31:51 [id number] [facility] 2021-07-16 Outpatient [facility]LMLC [facility] [id number] [facility] 12:15:11 [id number] [facility] 2021-07-16 Outpatient Mj Batista [facility] [id number] [facility] [address] 12:14:45 [id number] [facility] 2021-07-16 Outpatient [facility]C [facility] [id number] [facility] 12:07:03 [id number] [facility] 2021-07-16 Outpatient [facility]C [facility] [id number] [facility] 12:00:58 [id number] [facility] 2021-07-16 Outpatient Clover, STLMLC ST[facility]C [id number] [facility] [address] 11:52:50 Angelika [id number] [facility] 2021-07-16 Outpatient Clover, STLMLC ST[facility]C [id number] [facility] [address] 11:45:27 Angelika [id number] [facility] 2021-07-16 Outpatient Clover, STLMLC ST[facility]C [id number] [facility] [address] 11:45:17 Angelika [id number] [facility] 2021-07-16 Outpatient CloverPRASHANTH [facility] [id number] [facility] 11:29:12 Angelika [id number] [facility] 2021-07-16 Outpatient PRASHANTH Galo [facility] [id number] [facility] 11:28:36 Angelika [id number] [facility] Results This patient has no known results.
[2021-09-14 16:46] LABS: Absolute Lymphocytes (CBC) 1.3 K/uL (0.7-4.9); Hematocrit 38.5 % (36.0-45.0); Lymphocytes % 33.4 % (15.3-44.8); MPV 7.7 fL (7.6-11.3); RBC Red Blood Cell Count 4.16 M/uL (3.86-4.86)
[2021-09-14 17:01] LABS: Protime INR 1.03
[2021-09-14 17:12] LABS: Albumin 3.7 g/dL (3.4-5.0); Bilirubin Direct 0.1 mg/dL (0-0.2); Bilirubin Total 0.3 mg/dL (0.2-1.0); Magnesium 2.4 mg/dL (1.8-2.4); Potassium 4.1 mmol/L (3.5-5.1); Protein, Total 7.8 g/dL (6.4-8.2); Troponin High Sensitivity 7.2 pg/mL (<58.9)
--- NOTE | 2021-09-14 17:17 | RAD REPORT ---
EXAM DESCRIPTION: Molly Single View09/14/2021 4:32 pm CLINICAL HISTORY: Chest pain COMPARISON: 2020 FINDINGS: The lungs appear clear of acute infiltrate. The heart is mildly enlarged IMPRESSION: No acute abnormalities displayed
[2021-09-14] MEDS ORDERED: FENTANYL CITR 100 MCG/2 ML ONE (17:44)
--- NOTE | 2021-09-14 18:28 | EDPHYS ---
Physician Documentation [facility] Name: Ruslan Sanz Age: 80 yrs Sex: Female : 1940 Arrival Date: 09/14/2021 Time: 15:27 Bed 15 Private MD: ED Physician Manan Coronado HPI: 09/14 16:00 This 80 yrs old Female presents to ER via Ambulatory with complaints of Arm Pain. cp 16:00 The patient or guardian complains of pain, that is acute. cp 16:00 The complaints affect the left upper arm. Context: The problem was sustained at home, cp resulted from unknown cause. Onset: The symptoms/episode began/occurred started about 1 or 2 this afternoon. Treatment prior to arrival includes: no previous treatment. Associated signs and symptoms: Pertinent positives: weakness, radiating pain to left side of neck and across chest, Pertinent negatives: decreased range of motion, fever, numbness. Severity of symptoms: in the emergency department the symptoms have improved. Historical: - Allergies: 15:40 Morphine; ab2 15:40 PENICILLINS; ab2 - PMHx: 15:40 Anxiety; BREAST CA; Depression; Hypertension; Migraines; Sleep Apnea; trigeminal ab2 neuralgia; Vertigo; Osteoporosis; - PSHx: 15:40 Cholecystectomy; Left Mastectomy; Total abdominal hysterectomy; ab2 - Immunization history:: Adult Immunizations up to date. - Social history:: Smoking status: Patient denies any tobacco usage or history of. ROS: 16:05 Constitutional: Negative for body aches, chills, fever, poor PO intake. cp 16:05 Eyes: Negative for injury, pain, redness, and discharge. cp 16:05 ENT: Negative for drainage from ear(s), ear pain, sore throat, difficulty swallowing, difficulty handling secretions. 16:05 Cardiovascular: Positive for chest pain, Negative for edema, palpitations. 16:05 Respiratory: Negative for cough, shortness of breath, wheezing. 16:05 Abdomen/GI: Negative for abdominal pain, nausea, vomiting, and diarrhea. 16:05 Back: Negative for pain at rest, pain with movement, radiated pain. 16:05 Skin: Negative for cellulitis, rash. 16:05 Neuro: Positive for weakness, Negative for altered mental status, dizziness, headache, numbness, speech changes, syncope. 16:05 All other systems are negative. Exam: 16:10 Constitutional: The patient appears in no acute distress, alert, awake, cp non-diaphoretic, non-toxic, well developed, well nourished. 16:10 Head/Face: Normocephalic, atraumatic. cp 16:10 Eyes: Periorbital structures: appear normal, Conjunctiva: normal, no exudate, no injection, Sclera: no appreciated abnormality, Lids and lashes: appear normal, bilaterally. 16:10 ENT: External ear(s): are unremarkable, Nose: is normal, Mouth: Lips: moist, Oral mucosa: moist, Posterior pharynx: Airway: no evidence of obstruction, patent. 16:10 Neck: ROM/movement: is normal, is supple, without pain, no range of motions limitations, no nuchal rigidity. 16:10 Chest/axilla: Inspection: normal. 16:10 Cardiovascular: Rate: normal, Rhythm: regular, Edema: is not appreciated, JVD: is not appreciated. 16:10 Respiratory: the patient does not display signs of respiratory distress, Respirations: normal, no use of accessory muscles, no retractions, labored breathing, is not present, Breath sounds: are clear throughout, no decreased breath sounds, no stridor, no wheezing. 16:10 Abdomen/GI: Inspection: abdomen appears normal, Palpation: abdomen is soft and non-tender, in all quadrants. 16:10 Back: pain, is absent, ROM is normal. 16:10 Neuro: Orientation: to person, place \T\ time. Mentation: is normal, Motor: moves all fours, strength is normal, Sensation: is normal. 18:15 ECG was reviewed by the Attending Physician. cp Vital Signs: 15:38 BP 131 / 66; Pulse 75; Resp 17; Temp 98.1; Pulse Ox 98% on R/A; Weight 73.48 kg; Height ab2 5 ft. 3 in. (160.02 cm); Pain 7/10; 17:00 BP 126 / 65; Pulse 73; Resp 22; Pulse Ox 99% ; bp 18:00 BP 120 / 61; Pulse 73; Resp 21; Pulse Ox 96% ; bp 18:55 BP 128 / 67; Pulse 75; Resp 17; Temp 98.1; Pulse Ox 97% ; bp 15:38 Body Mass Index 28.70 (73.48 kg, 160.02 cm) ab2 MDM: 15:56 Patient medically screened. cp 16:00 Differential diagnosis: strain, acute MD, angina, anxiety, DVT. cp 18:23 Data reviewed: vital signs, nurses notes, lab test result(s), EKG, radiologic studies, cp plain films. Test interpretation: by ED physician or midlevel provider: ECG, plain radiologic studies. Counseling: I had a detailed discussion with the patient and/or guardian regarding: lab results, radiology results. ED course: Discussed results of labs, EKG and chest xray that were negative for acute STEMI. Patient reports pain resolved and declined any pain medications. Patient reports history of anxiety and increased stress dealing with health of multiple family members, Patient requesting discharge to home and reports having seen DR Kramer in the past. Will discharge to home for continued monitoring. 09/14 15:55 Order name: Basic Metabolic Panel; Complete Time: 17:16 bp 09/14 17:17 Interpretation: Normal except: NA 133; GFR 51. 09/14 15:55 Order name: CBC with Diff; Complete Time: 17:16 bp 09/14 17:17 Interpretation: Normal except: WBC 4.0. 09/14 15:55 Order name: LFT's; Complete Time: 17:16 bp 09/14 17:17 Interpretation: Normal except: GLOB 4.1; A/G 0.9. 09/14 15:55 Order name: Magnesium; Complete Time: 17:16 bp 09/14 17:41 Interpretation: Reviewed. 09/14 15:55 Order name: NT PRO-BNP; Complete Time: 17:16 bp 09/14 17:17 Interpretation: Reviewed. 09/14 15:55 Order name: PT-INR; Complete Time: 17:16 bp 09/14 17:41 Interpretation: Reviewed. 09/14 15:55 Order name: Troponin HS; Complete Time: 17:16 bp 09/14 17:17 Interpretation: Troponin HS 7.2; Reviewed. 09/14 15:55 Order name: XRAY Chest (1 view); Complete Time: 17:41 bp 09/14 17:41 Interpretation: Report review. 09/14 15:55 Order name: EKG; Complete Time: 15:56 bp 09/14 15:55 Order name: Cardiac monitoring; Complete Time: 17:54 bp 09/14 15:55 Order name: EKG - Nurse/Tech; Complete Time: 18:16 bp 09/14 15:55 Order name: IV Saline Lock; Complete Time: 17:54 bp 09/14 15:55 Order name: Labs collected and sent; Complete Time: 17:54 bp 09/14 15:55 Order name: O2 Per Protocol; Complete Time: 17:54 bp 09/14 15:55 Order name: O2 Sat Monitoring; Complete Time: 17:54 bp EC:15 Rate is 69 beats/min. Rhythm is regular. NC interval is normal. QRS interval is normal. cp QT interval is normal. T waves are Inverted in lead aVR. Interpreted by me. Reviewed by me. Administered Medications: 17:54 Not Given (Patient Refused): fentaNYL (PF) 25 mcg IVP once; RASS on ADMIN: Combtv4, bp Very Agttd3, Agttd2, Rstlss1, AlertClm0, Drwsy-1, Lt Sdtn-2, Mod Sdtn-3, Dp Sdtn-4, UnArsble-5 Disposition Summary: 09/14/21 18:28 Discharge Ordered Location: Home cp Problem: new cp Symptoms: are resolved cp Condition: Stable cp Diagnosis - Pain in left upper arm cp - Chest pain, unspecified cp Followup: cp - With: Colten Kramer MD - When: 1 - 2 days - Reason: Recheck today's complaints Discharge Instructions: - Discharge Summary Sheet cp - Nonspecific Chest Pain, Adult cp - Musculoskeletal Pain cp Forms: - Medication Reconciliation Form cp - Thank You Letter cp - Antibiotic Education cp - Prescription Opioid Use cp Prescriptions: - Protonix 40 mg Oral Tablet - take 1 tablet by ORAL route once daily; 30 tablet; Refills: 0, Product cp Selection Permitted Addendum: 09/17/2021 07:16 Co-signature as Attending Physician, Manan Coronado MD I agree with the assessment and c polanco plan of care. Signatures: Dispatcher [employer] Manan Harrison MD MD cha Page, Corey, PA PA cp Franck Ivy, RN RN bp Srinath Rolon2
--- NOTE | 2021-09-14 18:28 | ER ---
Nurse's Notes [facility] Name: Ruslan Sanz Age: 80 yrs Sex: Female : 1940 Arrival Date: 09/14/2021 Time: 15:27 Bed 15 Private MD: Diagnosis: Pain in left upper arm;Chest pain, unspecified Presentation: 09/14 15:38 Chief complaint: Patient states: "This morning she fell and had chest pain so I called ab2 the EMT out and they did an ekg but she did not want to go because the pain went away, but they advised her to come in. Now she is c/o L arm pain" Pt states it feels like someone is squeezing her arm and she can't catch a good breath. Coronavirus screen: Vaccine status: Patient reports being unvaccinated. Client denies travel out of the [place] in the last 14 days. At this time, the client does not indicate any symptoms associated with coronavirus-19. Ebola Screen: Patient negative for fever greater than or equal to 101.5 degrees Fahrenheit, and additional compatible Ebola Virus Disease symptoms Patient denies exposure to infectious person. Patient denies travel to an Ebola-affected area in the 21 days before illness onset. No symptoms or risks identified at this time. Initial Sepsis Screen: Does the patient meet any 2 criteria? No. Patient's initial sepsis screen is negative. Does the patient have a suspected source of infection? No. Patient's initial sepsis screen is negative. Risk Assessment: Do you want to hurt yourself or someone else? Patient reports no desire to harm self or others. Onset of symptoms is unknown. 15:38 Method Of Arrival: Ambulatory ab2 15:38 Acuity: MICHAEL 3 ab2 Triage Assessment: 15:41 General: Appears in no apparent distress. comfortable, Behavior is calm, cooperative, ab2 appropriate for age. Pain: Complains of pain in left arm. 15:41 Cardiovascular: Reports shortness of breath. ab2 Historical: - Allergies: 15:40 Morphine; ab2 15:40 PENICILLINS; ab2 - PMHx: 15:40 Anxiety; BREAST CA; Depression; Hypertension; Migraines; Sleep Apnea; trigeminal ab2 neuralgia; Vertigo; Osteoporosis; - PSHx: 15:40 Cholecystectomy; Left Mastectomy; Total abdominal hysterectomy; ab2 - Immunization history:: Adult Immunizations up to date. - Social history:: Smoking status: Patient denies any tobacco usage or history of. Screenin:40 Abuse screen: Denies threats or abuse. Denies injuries from another. Nutritional bp screening: No deficits noted. Tuberculosis screening: No symptoms or risk factors identified. Fall Risk None identified. Assessment: 15:45 General: SEE TRIAGE NOTE. bp 17:00 Reassessment: No changes from previously documented assessment. Patient and/or family bp updated on plan of care and expected duration. Pain level reassessed. 18:00 Reassessment: No changes from previously documented assessment. Patient states symptoms bp have improved. 18:55 Reassessment: PT D/C HOME AMBULATORY WITH FAMILY, DX WITH NON-CARDIAC CHEST PAIN. bp Vital Signs: 15:38 BP 131 / 66; Pulse 75; Resp 17; Temp 98.1; Pulse Ox 98% on R/A; Weight 73.48 kg; Height ab2 5 ft. 3 in. (160.02 cm); Pain 7/10; 17:00 BP 126 / 65; Pulse 73; Resp 22; Pulse Ox 99% ; bp 18:00 BP 120 / 61; Pulse 73; Resp 21; Pulse Ox 96% ; bp 18:55 BP 128 / 67; Pulse 75; Resp 17; Temp 98.1; Pulse Ox 97% ; bp 15:38 Body Mass Index 28.70 (73.48 kg, 160.02 cm) ab2 ED Course: 15:27 Patient arrived in ED. ds1 15:40 Triage completed. ab2 15:40 Arm band placed on right wrist. ab2 15:40 Patient has correct armband on for positive identification. Bed in low position. Call bp light in reach. Side rails up X2. Adult w/ patient. 15:48 Manan Aden PA is PHCP. cp 15:48 Manan Coronado MD is Attending Physician. cp 15:54 Franck Ivy, MARK is Primary Nurse. bp 16:34 XRAY Chest (1 view) In Process Unspecified. EDMS 16:34 Inserted saline lock: 22 gauge in right antecubital area, using aseptic technique. jd3 Blood collected. 18:27 Colten Kramer MD is Referral Physician. cp 18:55 No provider procedures requiring assistance completed. IV discontinued, intact, bp bleeding controlled, No redness/swelling at site. Pressure dressing applied. Administered Medications: 17:54 Not Given (Patient Refused): fentaNYL (PF) 25 mcg IVP once; RASS on ADMIN: Combtv4, bp Very Agttd3, Agttd2, Rstlss1, AlertClm0, Drwsy-1, Lt Sdtn-2, Mod Sdtn-3, Dp Sdtn-4, UnArsble-5 Outcome: 18:28 Discharge ordered by MD. cp 18:55 Discharged to home ambulatory, with family. bp 18:55 Condition: stable 18:55 Discharge instructions given to patient, family, Instructed on discharge instructions, follow up and referral plans. medication usage, Demonstrated understanding of instructions, follow-up care, medications, Prescriptions given X 1. 18:58 Patient left the ED. bp Signatures: Dispatcher [employer] EDPR Nely Quinones ds1 Manan Aden PA PA cp Davies, Jonathon, RN RN Franck Ruiz RN RN Srinath Olson ab2 Corrections: (The following items were deleted from the chart) 15:42 15:38 Chief complaint: Patient states: "This morning she fell and had chest pain so I ab2 called the EMT out and they did an ekg but she did not want to go because the pain went away, but they advised her to come in. Now she is c/o L arm pain" ab2
[2021-09-14 19:21] VITALS: TEMP 98.1
[2021-09-14 19:25] VITALS: BP 128/67; O2SAT 97
--- NOTE | 2021-09-16 12:38 | EKG ---
Test Date: 2021-09-14 Test Time: 18:08:31 [employer] Drier Operator: RALEIGH MEASUREMENT RESULTS: Intervals: Rate: 69 IL: 170 QRSD: 94 QT: 412 QTc: 441 [place]: P: 25 IL: 170 QRS: 9 T: 52 INTERPRETIVE STATEMENTS: Normal sinus rhythm Low voltage QRS Cannot rule out Anterior infarct, age undetermined Abnormal ECG Compared to ECG 10/23/2014 15:36:20 Low QRS voltage now present Myocardial infarct finding now present Electronically Signed On 09-16-21 12:33:36 CDT by Colten Kramer
== END 2021-09-14 18:58 | disposition home or self-care (01) ==
LOC: ER 15:23
DX: M79.622 Pain in left upper arm (principal); R07.9 Chest pain, unspecified; Z88.6 Allergy status to analgesic agent; Z88.0 Allergy status to penicillin; F41.8 Other specified anxiety disorders; I10 Essential (primary) hypertension; M81.0 Age-related osteoporosis without current pathological fracture; G50.0 Trigeminal neuralgia; Z85.3 Personal history of malignant neoplasm of breast
CPT/HCPCS: 93005; 85025; 80048; 36415; 83735; 85610; 80076; 84484; 83880; 71045; 99284; J3010